=== PATIENT | female | born 1995 | race Caucasian/White ===

== ENCOUNTER 2025-01-09 20:16 | Emergency (ER) | payer OTHER ==
[~2025-01-09] VITALS: Ht 162.6 cm; Wt 50.3 kg
[2025-01-09] MEDS ORDERED: TDAP [DIPH/PERTUSSIS/TET] 0.5 ML VIAL IM ONE (21:17)
[2025-01-09] MEDS ORDERED: LIDOCAINE HCL/MPF 1% 30 ML VIAL IJ ONE (21:20)
[2025-01-09] MEDS: TDAP [DIPH/PERTUSSIS/TET] 0.5 ML VIAL IM ONE (21:25)
[2025-01-09] MEDS: LIDOCAINE HCL/PF 1% 30 ML VIAL TP ONE (21:44)
[2025-01-09] MEDS ORDERED: CEPH-570 PO (22:01)
[2025-01-09] MEDS ORDERED: IBUP-1490 PO (22:01)
[2025-01-09] MEDS: BACI/NEOM/POLY B OINT PKT 1 UDPKT PACKET TP ONE (22:07)
[2025-01-09 22:10] VITALS: BP 110/73; TEMP 98.4; O2SAT 98
== END 2025-01-09 22:10 | disposition home or self-care (01) ==
LOC: ER 20:29
DX: S61.214A Laceration without foreign body of right ring finger without damage to nail, initial encounter (principal); Z60.2 Problems related to living alone; W25.XXXA Contact with sharp glass, initial encounter; Y93.89 Activity, other specified; Y92.89 Other specified places as the place of occurrence of the external cause; Y99.8 Other external cause status
CPT/HCPCS: 12001; 73130; 90471; 90715; 99283; A6403; J3490